=== PATIENT | female | born 1975 | race Asian ===

== ENCOUNTER 2017-01-18 09:08 | Outpatient (CLI) | payer OTHER ==
[~2017-01-18 09:08] MED LIST: INSULIN EX; INSULIN SY; LANTUS SOLOSTAR SC; LANTUS100 MG/ML SC; LISI5TAB10 PO; METF500T PO; NEXIUM40 M1 PO; NOVOFINE32 GX6MM EX; PEPCID40 MG PO; SIMV40TA57; SIMV40TA57 PO
[2017-01-18 09:42] LABS: PLATELET COUNT 462 K/uL (152-353)
[2017-01-18 09:57] LABS: POTASSIUM 3.8 mmol/L (3.6-5.2); SODIUM 139 mmol/L (136-145)
== END 2017-01-18 10:10 | disposition home or self-care (01) ==
LOC: LABW 09:08
PROVIDERS: Family Medicine
DX: E11.9 Type 2 diabetes mellitus without complications (principal); E78.4 Other hyperlipidemia; K21.9 Gastro-esophageal reflux disease without esophagitis; I10 Essential (primary) hypertension; E55.9 Vitamin D deficiency, unspecified
CPT/HCPCS: 36415; 80053; 80061; 81000; 82043; 82306; 82570; 83036; 83735; 84439; 84443; 85027

== ENCOUNTER 2018-01-03 10:16 | Outpatient (CLI) | payer OTHER ==
[2018-01-03 10:57] LABS: PLATELET COUNT 491 K/uL (152-353)
[2018-01-03 11:06] LABS: POTASSIUM 4.2 mmol/L (3.6-5.2)
== END 2018-01-03 19:58 | disposition home or self-care (01) ==
LOC: LABW 10:16
PROVIDERS: Family Medicine
DX: E11.9 Type 2 diabetes mellitus without complications (principal); I10 Essential (primary) hypertension; K21.9 Gastro-esophageal reflux disease without esophagitis
CPT/HCPCS: 36415; 80053; 80061; 81000; 82306; 83036; 83735; 84439; 84443; 85027

== ENCOUNTER 2019-02-14 10:22 | Outpatient (CLI) | payer OTHER ==
[2019-02-14 10:47] LABS: PLATELET COUNT 441 K/uL (152-353)
[2019-02-14 11:30] LABS: POTASSIUM 4.1 mmol/L (3.6-5.2)
== END 2019-02-14 20:58 | disposition home or self-care (01) ==
LOC: LABW 10:22
PROVIDERS: Family Medicine
DX: E11.9 Type 2 diabetes mellitus without complications (principal); I10 Essential (primary) hypertension; K21.9 Gastro-esophageal reflux disease without esophagitis
CPT/HCPCS: 36415; 80053; 80061; 81000; 82306; 83036; 83735; 84439; 84443; 85027

== ENCOUNTER 2021-03-19 09:12 | Outpatient (CLI) | payer OTHER | END 2021-03-19 18:52 | disposition home or self-care (01) | LOC: MAMMO 09:12 | PROVIDERS: ATTEND Family Medicine | DX: Z12.39 Encounter for other screening for malignant neoplasm of breast (principal); Z00.00 Encounter for general adult medical examination without abnormal findings; Z12.31 Encounter for screening mammogram for malignant neoplasm of breast ==

== ENCOUNTER 2021-05-01 09:53 | Outpatient (CLI) | payer OTHER | END 2021-05-01 19:52 | disposition home or self-care (01) | LOC: MAMMO 09:53 | PROVIDERS: ATTEND Family Medicine | DX: R92.8 Other abnormal and inconclusive findings on diagnostic imaging of breast (principal); N64.59 Other signs and symptoms in breast | CPT/HCPCS: 36415; 82565; 84520 ==

== ENCOUNTER 2021-11-11 08:53 | Outpatient (CLI) | payer OTHER | END 2021-11-11 18:47 | disposition home or self-care (01) | LOC: US 08:53 | PROVIDERS: ATTEND Family Medicine | DX: R92.8 Other abnormal and inconclusive findings on diagnostic imaging of breast (principal) | CPT/HCPCS: G0279 ==

== ENCOUNTER 2022-05-05 08:24 | Outpatient (CLI) | payer OTHER | END 2022-05-05 18:56 | disposition home or self-care (01) | LOC: MAMMO 08:24 | PROVIDERS: ATTEND Family Medicine | DX: Z12.31 Encounter for screening mammogram for malignant neoplasm of breast (principal) ==